=== PATIENT | female | born 1980 | race Caucasian/White ===

== ENCOUNTER 2019-09-14 21:08 | Emergency (ER) | payer OTHER ==
[2019-09-14 21:27] VITALS: BP 126/88
--- NOTE | 2019-09-14 21:45 | UC ---
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 She thought it was related to the pts house or pets. Pts family member noticed a rash along the L side of her neck, collarbone , and chest. Pt states today the rash areas are larger and they burn. Pt concerned it may be shingles, or contact dermatitis from something in the pts home. Pt unsure of childhood hx of chicken pox. - History of Current Complaint Chief Complaint: UCSkin Time Seen by Provider: 09/14/19 21:26 Stated Complaint: RASH Hx Obtained From: Patient Hx Last Menstrual Period: 09/11/19 ?: No Onset/Duration: Sudden Onset, Lasting Days Skin Exposure Onset/Duration: Days Ago Timing: Constant Onset Severity: Mild Current Severity: Mild Pain Intensity: 0 - Allergy/Home Medications Allergies/Adverse Reactions: Allergies Allergy/AdvReac Type Severity Reaction Status Date / Time No Known Allergies Allergy Verified 09/14/19 21:23 Home Medications: Home Medications Ibuprofen TAB* [Advil TAB*] 400 mg PO ONCE 09/14/19 [History Confirmed 09/14/19] PMH/Surg Hx/FS Hx/Imm Hx Previously Healthy: Yes - Surgical History Surgical History: Yes Surgery Procedure, Year, and Place: Tonsilectomy - Family History Known Family History: Positive: Hypertension - Social History Alcohol Use: None Substance Use Type: None Smoking Status (MU): Never Smoked Tobacco Review of Systems All Other Systems Reviewed And Are Negative: Yes Skin: Positive: Rash Is Patient Immunocompromised?: No Physical Exam Triage Information Reviewed: Yes Appearance: Well-Appearing, Well-Nourished, Pain Distress Vital Signs: Initial Vital Signs Temp 98 F 09/14/19 21:23 Pulse 100 09/14/19 21:23 Resp 16 09/14/19 21:23 BP 126/88 09/14/19 21:23 Pulse Ox 100 09/14/19 21:23 Vital Signs Reviewed: Yes Eye Exam: Normal ENT Exam: Normal Dental Exam: Normal Neck exam: Normal Respiratory Exam: Normal Respiratory: Positive: Chest non-tender, Lungs clear, Normal breath sounds Cardiovascular Exam: Normal Cardiovascular: Positive: RRR, No Murmur, Pulses Normal Bowel Sounds: Positive: Present Musculoskeletal Exam: Normal Neurological Exam: Normal Psychological Exam: Normal Skin: Positive: Rashes - starts on the right shoulder and runs around the neck to front of chest. Course/Dx - Course Course Of Treatment: hx obtained, exam performed ,meds reviewed, - Differential Diagnoses - Skin Complaint Differential Diagnoses: Varicella Zoster - Diagnoses Provider Diagnosis: Shingles Discharge ED - Sign-Out/Discharge Documenting (check all that apply): Patient Departure All imaging exams completed and their final reports reviewed: No Studies - Discharge Plan Condition: Stable Disposition: HOME Prescriptions: ValACYclovir (*) [Valtrex 1 GM(*)] 1 gm PO DAILY #14 tab Patient Education Materials: Shingles (ED) Referrals: Zander Tijerina MD [Primary Care Provider] - Additional Instructions: 1. take the medication as prescribed. 2. cool co,presses, ibuprofen for pain 3. Keep area covered. 4. FOllow up if not improving over the next week. - Billing Disposition and Condition Condition: STABLE Disposition: Home
[2019-09-14] MEDS ORDERED: Acyclovir* 200 MG CAP PO ONE (21:50)
== END 2019-09-14 22:00 | disposition home or self-care (01) ==
LOC: UCCORT 21:08
DX: B02.9 Zoster without complications (principal)
CPT/HCPCS: 99212; A9270-GY; G0463